=== PATIENT | male | born 1975 | race Caucasian/White ===

== ENCOUNTER 2017-02-04 12:21 | Emergency (ER) | payer OTHER ==
[2017-02-04] MEDS ORDERED: Bupivacaine 0.5% 30 ML SDV INFILT ONE (12:22)
[2017-02-04] MEDS ORDERED: Lidocaine 2% Jelly 5 ML Urojet ONE (12:50)
[2017-02-04] MEDS ORDERED: Lidocaine 2% Jelly 5 ML Urojet MUCMEM ONE (12:53)
--- NOTE | 2017-02-04 12:59 | EDM.PDOC ---
ED HPI GENERAL MEDICAL PROBLEM - General Chief Complaint: Laceration Stated Complaint: LACERATION ON LEFT HAND FINGER Time Seen by Provider: 02/04/17 12:36 Source of Information: Reports: Patient History Limitations: Reports: No Limitations - History of Present Illness INITIAL COMMENTS - FREE TEXT/NARRATIVE: 41 y.o.w.m in prev healthy condition, was doing wood work for a friend and injured himself by accident with a table saw in his left index finger. He denied cutting in "the bone" and refused X Rays. Pt has full function at his left index finger. Pt denies any other acute medical issues. TD is UTD ( 2 years ago, ) BP 137/102 pulse 82 temp 36.8 pulse ox 99% on RA Onset Date: 02/04/17 Onset Time: 11:00 Duration: Hour(s): Location: Reports: Upper Extremity, Left Quality: Reports: Ache, Stabbing Severity: Mild Improves with: Reports: Rest Worsens with: Reports: Movement Context: Reports: Trauma (table saw in in left index finger) Associated Symptoms: Reports: No Other Symptoms Left 2-Index finger Pain Score (Numeric/FACES): 3 - Related Data Allergies Allergy/AdvReac Type Severity Reaction Status Date / Time No Known Allergies Allergy Verified 02/04/17 12:34 Home Meds: Home Meds Amoxicillin/Potassium Clav [Augmentin 875-125 Tablet] 1 each PO BID #20 tablet 02/04/17 [Rx] Valsartan [Valsartan] 80 mg PO DAILY 02/04/17 [History] Past Medical History Cardiovascular History: Reports: Hypertension Social & Family History - Caffeine Use Caffeine Use: Reports: Soda - Recreational Drug Use Recreational Drug Use: No ED ROS GENERAL - Review of Systems Review Of Systems: See Below Constitutional: Reports: No Symptoms HEENT: Reports: No Symptoms Respiratory: Reports: No Symptoms Cardiovascular: Reports: No Symptoms Endocrine: Reports: No Symptoms GI/Abdominal: Reports: No Symptoms : Reports: No Symptoms Musculoskeletal: Reports: Hand Pain (left index finger LAC) Skin: Reports: Wound (left index finger LAC) Neurological: Reports: No Symptoms Psychiatric: Reports: No Symptoms Hematologic/Lymphatic: Reports: No Symptoms Immunologic: Reports: No Symptoms ED EXAM, SKIN/RASH Exam: See Below Exam Limited By: No Limitations General Appearance: Alert, WD/WN, Mild Distress Eye Exam: Bilateral Eye: Normal Inspection Ears: Normal External Exam Nose: Normal Inspection Throat/Mouth: Normal Inspection Head: Atraumatic, Normocephalic Neck: Normal Inspection, Supple Respiratory/Chest: No Respiratory Distress Cardiovascular: Normal Peripheral Pulses, Regular Rate, Rhythm Peripheral Pulses: 1+: Radial (L) GI/Abdominal: Normal Bowel Sounds (Male) Exam: Deferred Rectal (Males) Exam: Deferred Back Exam: Normal Inspection Extremities: Other (finger tip left index) Neurological: Alert, Oriented, CN II-XII Intact Psychiatric: Normal Affect, Normal Mood Skin: Wound/Incision (LAC left index finger) Location, Skin: Upper Extremity, Left Lymphatic: No Adenopathy ED SKIN PROCEDURES - Laceration/Wound Repair Left Finger Lac/Wound length In cm: 1 (fingertip left index finger) Appearance: Subcutaneous, Linear, Clean Distal NVT: Neuro & Vascular Intact, No Tendon Injury Anesthetic Type: Local Local Anesthesia - Bupivicaine (Marcaine): 0.5% Plain Local Anesthetic Volume: 2cc Skin Prep: Chlorhexidine (Hibiciens), Saline Exploration/Debridement/Repair: Wound Explored, In a Bloodless Field, Explored to Base Closed with: Sutures Suture Size: 4-0 # of Sutures: 3 Suture Type: Interrupted Tetanus Status Addressed: Yes (2 years ago) Complications: No Course - Vital Signs Text/Narrative:: 41 y.o.w.m in prev healthy condition, was doing wood work for a friend and injured himself by accident with a table saw in his left index finger. He denied cutting in "the bone" and refused X Rays. Pt has full function at his left index finger. Pt denies any other acute medical issues. TD is UTD ( 2 years ago, ) BP 137/102 pulse 82 temp 36.8 pulse ox 99% on RA PE: Laceration 1 cm full thickness left fingertip, linear. Imaging: Refused Impression: LAC left index finger Procedure note, please see note above Tx: Augmentin Reexam: Improved Plan: D/C with instructions Last Recorded V/S: Last Vital Signs Temp 36.7 C 02/04/17 12:36 Pulse 79 02/04/17 13:38 Resp 18 02/04/17 12:36 BP 130/78 02/04/17 13:38 Pulse Ox 100 02/04/17 12:36 - Orders/Labs/Meds Meds: Medications Discontinued Medications Generic Name Dose Route Start Last Admin Trade Name Yoshi PRN Reason Stop Dose Admin Amoxicillin/Clavulanate Potassium 1 tab 02/04/17 13:31 02/04/17 13:37 Augmentin 875 Mg/125 Mg PO 02/04/17 13:32 1 tab ONETIME ONE Administration Lidocaine HCl Confirm 02/04/17 12:50 02/04/17 12:56 Xylocaine 2% Jelly Administered 02/04/17 12:51 Not Given Dose 5 ml .ROUTE .STK-MED ONE Lidocaine HCl 5 ml 02/04/17 12:53 02/04/17 12:56 Xylocaine 2% Jelly MUCMEM 02/04/17 12:54 5 ml ONETIME ONE Administration Departure - Departure Time of Disposition: 13:32 Disposition: Home, Self-Care 01 Condition: Good Clinical Impression: Finger laceration Qualifiers: Encounter type: initial encounter Finger: index finger Damage to nail status: without damage Foreign body presence: without foreign body Laterality: left Qualified Code(s): S61.211A - Laceration without foreign body of left index finger without damage to nail, initial encounter - Discharge Information Prescriptions: Amoxicillin/Potassium Clav [Augmentin 875-125 Tablet] 1 each PO BID #20 tablet Referrals: Martin Barker MD [Primary Care Provider] - Forms: ED Department Discharge Additional Instructions: Please apply neosporine ointment to wound, please take Augmentin as recommended , Motrin for pain. Wound Check in 3 days, suture removal in 7-10 days, please come back to the ed if your symptoms get worse acutely.
[2017-02-04] MEDS ORDERED: Amoxicillin/Clavulanate K 875-125 MG Tab PO ONE (13:31)
== END 2017-02-04 13:38 | disposition home or self-care (01) ==
LOC: FB.ED 12:21
DX: S61.211A Laceration without foreign body of left index finger without damage to nail, initial encounter (principal); I10 Essential (primary) hypertension; W26.8XXA Contact with other sharp object(s), not elsewhere classified, initial encounter
CPT/HCPCS: 12001; 99283; A9270

== ENCOUNTER 2021-06-17 07:50 | Day surgery (SDC) | payer OTHER ==
[~2021-06-17 07:50] MED LIST: Lactated Ringers 1,000 ML IV SCH; Sodium Chloride 0.9% 10 ML Syringe FLUSH PRN
[2021-06-17] MEDS ORDERED: Propofol 200 MG/20 ML SDV IV ONE (07:51)
[2021-06-19 00:07] LABS: ADENOVIRUS F 40/41 Not Detected (Not Detected); ASTROVIRUS Not Detected (Not Detected); C DIFFICILE TOXIN A/B Not Detected (Not Detected); CAMPYLOBACTER Not Detected (Not Detected); CRYPTOSPORIDIUM Not Detected (Not Detected); CYCLOSPORA CAYETANENSIS Not Detected (Not Detected); ENTAMOEBA HISTOLYTICA Not Detected (Not Detected); ENTEROAGGREGATIVE E COLI Not Detected (Not Detected); ENTEROPATHOGENIC E COLI Not Detected (Not Detected); ENTEROTOXIGENIC E COLI Not Detected (Not Detected); GIARDIA LAMBLIA Not Detected (Not Detected); NOROVIRUS GI/GII Not Detected (Not Detected); PLESIOMONAS SHIGELLOIDES Not Detected (Not Detected); ROTAVIRUS A Not Detected (Not Detected); SALMONELLA Not Detected (Not Detected); SAPOVIRUS Not Detected (Not Detected); SHIGA-TOXIN-PRODUCING E COLI Not Detected (Not Detected); SHIGELLA/ENTEROINVASIVE E COLI Not Detected (Not Detected); VIBRIO Not Detected (Not Detected); VIBRIO CHOLERAE Not Detected (Not Detected); YERSINIA ENTEROCOLITICA Not Detected (Not Detected)
== END 2021-06-17 10:03 | disposition home or self-care (01) ==
LOC: FB.SDS 07:50
PROVIDERS: ATTEND Surgery
DX: Z12.11 Encounter for screening for malignant neoplasm of colon (principal); K52.89 Other specified noninfective gastroenteritis and colitis; I10 Essential (primary) hypertension; Z88.1 Allergy status to other antibiotic agents; Z88.5 Allergy status to narcotic agent; Z79.899 Other long term (current) drug therapy
CPT/HCPCS: 00812-QZ; 0097U; 88305; 89055; J2704; J7120

== ENCOUNTER 2024-01-09 09:25 | Day surgery (SDC) | payer OTHER ==
[2024-01-09] MEDS ORDERED: Lidocaine 2% 100 MG/5 ML Syringe IVPUSH ONE (09:26)
[2024-01-09] MEDS ORDERED: Propofol 200 MG/20 ML SDV IV ONE (09:26)
[2024-01-09] MEDS ORDERED: Ketamine 500 mg/10 ML MDV IV ONE (09:26)
[2024-01-09] MEDS ORDERED: Midazolam 1 MG/ML 2 ML SDV IV ONE (09:26)
[2024-01-09] MEDS ORDERED: Sodium Chloride 0.9% 10 ML Syringe FLUSH PRN (09:30)
[2024-01-09] MEDS: Lactated Ringers 1,000 ML IV SCH (10:25)
[2024-01-09] MEDS: Simethicone Drops 40 MG/0.6 ML 30 ML Bottle ONE (11:08)
== END 2024-01-09 12:18 | disposition home or self-care (01) ==
LOC: FB.SDS 09:25
PROVIDERS: ATTEND Surgery
DX: K29.80 Duodenitis without bleeding (principal); K31.89 Other diseases of stomach and duodenum; K21.9 Gastro-esophageal reflux disease without esophagitis; I10 Essential (primary) hypertension; Z88.5 Allergy status to narcotic agent; Z88.8 Allergy status to other drugs, medicaments and biological substances; F17.220 Nicotine dependence, chewing tobacco, uncomplicated; Z79.899 Other long term (current) drug therapy
CPT/HCPCS: 00731; 43239; 88305; 88342; A9270; J2250; J2704; J3490; J7120